=== PATIENT | male | born 1990 | race Two or more races ===

== ENCOUNTER 2022-07-31 08:55 | Emergency (ER) | payer OTHER ==
[2022-07-31 09:30] VITALS: BMI 22.8
[2022-07-31] MEDS ORDERED: ACETAMINOPHEN 1000 MG/100 ML BAG IVPB ONE (09:41)
[2022-07-31] MEDS ORDERED: FAMOTIDINE 20 MG/50 ML IVPB 20 MG/50 ML MG IVPB ONE ×2 (09:41→09:51)
[2022-07-31] MEDS ORDERED: SODIUM CHLORIDE 0.9% 500 ML INFUS.BAG IV ONE (09:41)
[2022-07-31] MEDS ORDERED: ONDANSETRON 4 MG/2 ML VIAL IVPUSH ONE (09:41)
[2022-07-31] MEDS ORDERED: LORazepam 2 MG/ML SDV VIAL IVPUSH ONE (09:48)
[2022-07-31] MEDS ORDERED: ONDANSETRON 4 MG/2 ML VIAL ONE (09:51)
[2022-07-31] MEDS ORDERED: ACETAMINOPHEN INJECTION 100 ML IVPB ONE (09:51)
[2022-07-31 10:33] LABS: BASO % 0.3 % (0-2.0); HEMOGLOBIN 13.9 GM/dL (11.7-16.9); LYMPH % 11.2 % (8-40); MCH 25.8 pg (25.7-33.7); MCHC 32.3 g/dl (32.0-35.9); MEAN CELL VOLUME 80.1 fl (80-96); MEAN PLT VOLUME 8.1 fl (7.5-11.1); MONO % 7.6 % (3.8-10.2); NEUT % 80.9 % (42.8-82.8); PLATELET COUNT 277 10^3/uL (134-434); RBC 5.37 M/mm3 (4.00-5.60); RDW 13.8 % (11.9-15.9)
[2022-07-31 10:49] LABS: CALCIUM 9.6 mg/dL (8.5-10.1)
[2022-07-31 10:50] LABS: ALBUMIN 4.1 g/dl (3.4-5.0); MAGNESIUM 1.8 mg/dL (1.8-2.4)
[2022-07-31 10:54] LABS: CREATININE 1.3 mg/dL (0.55-1.3)
[2022-07-31 10:55] LABS: TOT PROT 7.2 g/dl (6.4-8.2)
[2022-07-31 10:58] LABS: BILIRUBIN,TOTAL 0.6 mg/dL (0.2-1)
[2022-07-31] MEDS ORDERED: SODIUM CHLORIDE 1,000 ML IV STA (11:27)
[2022-07-31] MEDS ORDERED: METOCLOPRAMIDE HCL INJECTION 10 MG/2 ML VIAL IVPUSH ONE (11:45)
[2022-07-31] MEDS ORDERED: METOCLOPRAMIDE HCL INJECTION 10 MG/2 ML VIAL ONE (11:48)
[2022-07-31 15:20] LABS: EPI CELLS 26 /uL (0-25.1); HYALINE CASTS 1 /uL (0-3.1); PH,URINE >= 9.0 (5.0-8.0); URINE APPEARANCE CLOUDY; URINE BACTERIA 13 /uL (0-1359); URINE BILIRUBIN NEGATIVE (NEGATIVE); URINE COLOR YELLOW; URINE GLUCOSE (UA) NEGATIVE (NEGATIVE); URINE KETONE NEGATIVE (NEGATIVE); URINE LEUK ESTERASE NEGATIVE (NEGATIVE); URINE NITRITE NEGATIVE (NEGATIVE); URINE PROTEIN 1+ (NEGATIVE); URINE RBC 13 /uL (0-23.9); URINE UROBILINOGEN 0.2 mg/dL (0.2-1.0); URINE WBC 8 /uL (0-25.8)
[2022-07-31 15:34] VITALS: BP 131/82; PULSE 60; RESP 15; TEMP 97.9
== END 2022-07-31 16:45 | disposition home or self-care (01) ==
LOC: JER 08:55
PROC: 3E033NZ Introduction of Analgesics, Hypnotics, Sedatives into Peripheral Vein, Percutaneous Approach (ICD-10-PCS; principal; 2022-07-31)
PROC: 3E033GC Introduction of Other Therapeutic Substance into Peripheral Vein, Percutaneous Approach (ICD-10-PCS; 2022-07-31)
PROC: 3E0337Z Introduction of Electrolytic and Water Balance Substance into Peripheral Vein, Percutaneous Approach (ICD-10-PCS; 2022-07-31)
DX: R11.15 Cyclical vomiting syndrome unrelated to migraine (principal); R10.84 Generalized abdominal pain
CPT/HCPCS: 0241U-QW; 36415; 71045-TC-FY; 74177-TC; 80053; 81003; 83690; 83735; 85025; 87086; 87491; 87591; 93005; 93010; 99284-25; Q9967

== ENCOUNTER 2024-07-16 01:02 | Emergency (ER) | payer OTHER ==
[2024-07-16] MEDS ORDERED: PANTOPRAZOLE SODIUM 40 MG VIAL ONE (01:04)
[2024-07-16] MEDS ORDERED: ONDANSETRON 4 MG/2 ML VIAL ONE (01:04)
[2024-07-16] MEDS ORDERED: ACETAMINOPHEN INJECTION 100 ML ONE (01:04)
[2024-07-16] MEDS ORDERED: MAG HYDROX/AL HYDROX/SIMETH 30 ML UNIT-DOSE CUP ONE (01:04)
[2024-07-16 01:14] VITALS: RESP 18; TEMP 98.6; BMI 22.1
[2024-07-16] MEDS: ONDANSETRON 4 MG/2 ML VIAL IVPUSH ONE (01:15)
[2024-07-16] MEDS: ACETAMINOPHEN 1000 MG/100 ML BAG IVPB ONE (01:15)
[2024-07-16] MEDS: PANTOPRAZOLE SODIUM 40 MG VIAL IVPUSH ONE (01:15)
[2024-07-16] MEDS: MAG HYDROX/AL HYDROX/SIMETH 30 ML UNIT-DOSE CUP PO ONE (01:15)
[2024-07-16] MEDS: FAMOTIDINE 20 MG/50 ML IVPB 20 MG/50 ML MG IVPB ONE (01:15)
[2024-07-16 01:35] LABS: BASO % 0.6 % (0-2.0); EOS % 0.2 % (0-4.5); HEMOGLOBIN 14.1 GM/dL (11.7-16.9); LYMPH % 26.5 % (8-40); MCH 26.4 pg (25.7-33.7); MCHC 32.8 g/dl (32.0-35.9); MEAN CELL VOLUME 80.5 fl (80-96); MEAN PLT VOLUME 8.2 fl (7.5-11.1); MONO % 6.5 % (3.8-10.2); NEUT % 66.2 % (42.8-82.8); PLATELET COUNT 275 10^3/uL (134-434); RBC 5.34 M/mm3 (4.00-5.60); RDW 13.7 % (11.9-15.9)
[2024-07-16] MEDS ORDERED: METOCLOPRAMIDE HCL INJECTION 10 MG/2 ML VIAL ONE (01:40)
[2024-07-16] MEDS: SODIUM CHLORIDE 0.9% 1000 ML INFUS.BAG IV ONE (01:55)
[2024-07-16] MEDS ORDERED: HYDROmorphone HCl 2 MG/ML VIAL ONE (01:56)
[2024-07-16] MEDS: METOCLOPRAMIDE HCL INJECTION 10 MG/2 ML VIAL IVPB ONE (01:56)
[2024-07-16 02:03] LABS: ALK PHOS 88 U/L (45-117); ANION GAP 8 mmol/L (4-13); BILIRUBIN,TOTAL 0.3 mg/dL (0.2-1); BLOOD UREA NITROGEN 11.3 mg/dL (7-18); CALCIUM 8.8 mg/dL (8.5-10.1); CHLORIDE 108 mmol/L (98-107); CO2 24 mmol/L (21-32); CREATININE 1.2 mg/dL (0.55-1.3); GLUCOSE,RANDOM 123 mg/dL (74-106); POTASSIUM 4.2 mmol/L (3.5-5.1); SGOT/AST 28 U/L (15-37); SGPT/ALT 20 U/L (13-61); SODIUM 140 mmol/L (136-145); TOT PROT 7.4 g/dl (6.4-8.2)
[2024-07-16] MEDS: HYDROmorphone HCl 2 MG/ML VIAL IVPUSH ONE (02:04)
[2024-07-16] MEDS ORDERED: LIDOCAINE VISCOUS 2% ORAL/TOP 15 ML UNIT-DOSE CUP ONE (04:19)
[2024-07-16] MEDS: LIDOCAINE VISCOUS 2% ORAL/TOP 15 ML UNIT-DOSE CUP MM ONE (04:34)
[2024-07-16 06:36] VITALS: BP 128/76; PULSE 66
[2024-07-16] MEDS ORDERED: ATOVAQUONE 750 MG/5 ML (UNIT-DOSE PACKAGING) PO SCH (08:00)
== END 2024-07-16 06:42 | disposition home or self-care (01) ==
LOC: JER 01:02
PROC: 3E033NZ Introduction of Analgesics, Hypnotics, Sedatives into Peripheral Vein, Percutaneous Approach (ICD-10-PCS; principal; 2024-07-16)
PROC: 3E033NZ Introduction of Analgesics, Hypnotics, Sedatives into Peripheral Vein, Percutaneous Approach (ICD-10-PCS; 2024-07-16)
PROC: 3E033GC Introduction of Other Therapeutic Substance into Peripheral Vein, Percutaneous Approach (ICD-10-PCS; 2024-07-16)
PROC: 3E033GC Introduction of Other Therapeutic Substance into Peripheral Vein, Percutaneous Approach (ICD-10-PCS; 2024-07-16)
PROC: 3E033GC Introduction of Other Therapeutic Substance into Peripheral Vein, Percutaneous Approach (ICD-10-PCS; 2024-07-16)
DX: R10.13 Epigastric pain (principal); R11.2 Nausea with vomiting, unspecified
CPT/HCPCS: 36415; 80053; 80307; 83690; 85025; 99284-25; J0131